=== PATIENT | female | born 1960 | race African-American/Black ===

== ENCOUNTER 2018-03-04 15:57 | Emergency (ER) | payer MEDICAID ==
[2018-03-04] MEDS ORDERED: Sodium Chloride 0.9% 1,000 ML IV ONE (16:16)
[2018-03-04] MEDS ORDERED: Sodium Chloride 0.9% 10 ML Syringe FLUSH PRN (16:17)
--- NOTE | 2018-03-04 16:31 | EDM.PDOC ---
ED HPI GENERAL MEDICAL PROBLEM - General Chief Complaint: Neuro Symptoms/Deficits Stated Complaint: [facility] Time Seen by Provider: 03/04/18 16:06 Source of Information: Reports: Patient, Police History Limitations: Reports: No Limitations - History of Present Illness INITIAL COMMENTS - FREE TEXT/NARRATIVE: 57-year-old female arrives via ambulance service for evaluation treatment of right-sided weakness. Patient is currently at [facility]. The report I got from the police and she began complaining of dizziness around 1400. They moved her downstairs for closer monitoring. They appreciated that she then had speech difficulties which they did not identify as slurred speech but more trouble with stuttering and word finding. Patient is complaining of right-sided weakness in her arm and leg. She is also complaining of numbness and tingling in the right side of her arm and leg. She reports that she has a history of an aneurysm, this has never ruptured and has not required any repair thus far. Patient reports whenever she coughs she experiences a headache. Associated symptoms currently include a headache, dizziness, nausea and vomiting. Patient reports she has a history of multiple stroke. This was in [place], [place]. EMS reports that she did walk a short distance in front of them. She had a shaky gait but did not demonstrate any obvious weakness, right side did not give out on her. - Related Data Allergies Allergy/AdvReac Type Severity Reaction Status Date / Time No Known Allergies Allergy Verified 03/04/18 16:03 Home Meds: Home Meds Aspirin [[place] Aspirin EC] 81 mg PO DAILY 03/04/18 [History] Citalopram Hydrobromide [Celexa] 10 mg PO DAILY 03/04/18 [History] Cyclobenzaprine [Flexeril] 10 mg PO TID PRN 03/04/18 [History] Gabapentin [Neurontin] 300 mg PO BID 03/04/18 [History] Metoprolol Tartrate 25 mg PO BID 03/04/18 [History] Naproxen 375 mg PO BID 03/04/18 [History] Omeprazole 40 mg PO DAILY 03/04/18 [History] Polyethylene Glycol [Polyox Wsr-301] 1 dose PO DAILY PRN 03/04/18 [History] Pravastatin [Pravachol] 40 mg PO DAILY 03/04/18 [History] Thiamine [Vitamin B-1] 100 mg PO DAILY 03/04/18 [History] amLODIPine Besylate [Amlodipine Besylate] 10 mg PO DAILY 03/04/18 [History] hydrOXYzine HCl [hydrOXYzine] 25 mg PO BEDTIME PRN 03/04/18 [History] Past Medical History Cardiovascular History: Reports: Hypertension Neurological History: Reports: Cerebral Aneurysms, CVA Social & Family History - Tobacco Use Smoking Status *Q: Never Smoker Second Hand Smoke Exposure: No - Caffeine Use Caffeine Use: Reports: None - Recreational Drug Use Recreational Drug Use: Yes Drug Use in Last 12 Months: Yes ED ROS GENERAL - Review of Systems Review Of Systems: See Below Respiratory: Denies: Shortness of Breath Cardiovascular: Denies: Chest Pain GI/Abdominal: Reports: Nausea, Vomiting Musculoskeletal: Reports: Neck Pain Neurological: Reports: Dizziness, Headache (with cough), Numbness (right side), Tingling (right side), Trouble Speaking (no slurred speech, shaky speech, trouble wiht word finding), Difficulty Walking, Weakness (right sided) ED EXAM, NEURO - Physical Exam Exam: See Below Exam Limited By: No Limitations General Appearance: Alert, WD/WN, No Apparent Distress Eye Exam: Bilateral Eye: EOMI, Normal Inspection, PERRL Ears: Normal External Exam Nose: Normal Inspection Throat/Mouth: Normal Inspection, Normal Lips, No Airway Compromise, Other (no slurred speech) Respiratory/Chest: No Respiratory Distress, Lungs Clear, Normal Breath Sounds Cardiovascular: Normal Peripheral Pulses, Regular Rate, Rhythm, No Murmur GI/Abdominal: Soft, Non-Tender Neurological: Alert, Normal Mood/Affect, Normal Dorsiflexion (poor effort ), Normal Plantar Flexion (poor effort), 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 ) Extremities: Normal Inspection, Normal Capillary Refill Psychiatric: Normal Affect, Normal Mood Skin Exam: Warm, Dry, Normal Color EKG INTERPRETATION EKG Date: 03/04/18 Time: 17:00 Rhythm: NSR Rate (Beats/Min): 105 [place]: Normal P-Wave: Present QRS: Normal ST-T: Normal QT: Normal EKG Interpretation Comments: sinus tachycardia at 105. + LORENZO. + LAE. No AVB. No ischemic changes. Slight early transition. Borderline LAD. No LVH. No IVCD. QTc within normal limits with a QTc of 463. Reviewed by myself and Dr. Rivera. Course - Vital Signs Last Recorded V/S: Last Vital Signs Temp 97.1 F 03/04/18 16:00 Pulse 108 H 03/04/18 16:00 Resp 18 03/04/18 16:00 BP 134/101 H 03/04/18 16:00 Pulse Ox 99 03/04/18 16:00 - Orders/Labs/Meds Labs: Laboratory Tests 03/04/18 03/04/18 03/04/18 Range/Units 16:30 16:30 16:30 WBC 12.94 H (3.98-10.04) K/mm3 RBC 4.76 (3.98-5.22) M/mm3 Hgb 14.2 (11.2-15.7) gm/L Hct 43.5 (34.1-44.9) % MCV 91.4 (79.4-94.8) fl MCH 29.8 (25.6-32.2) pg MCHC 32.6 (32.2-35.5) g/dl RDW Std Deviation 43.8 (36.4-46.3) fL Plt Count 283 (182-369) K/mm3 MPV 9.5 (9.4-12.3) fl Neutrophils % (Manual) 61 H (40-60) % Band Neutrophils % 2 (0-10) % Lymphocytes % (Manual) 32 (20-40) % Atypical Lymphs % 0 % Monocytes % (Manual) 5 (2-10) % Eosinophils % (Manual) 0 L (0.7-5.8) % Basophils % (Manual) 0 L (0.1-1.2) Platelet Estimate Adequate RBC Morph Comment Normal PT 10.5 (9.5-12.1) SECONDS INR 0.96 APTT 28 (24-31) SECONDS Sodium 141 (136-145) mEq/L Potassium 3.1 L (3.5-5.1) mEq/L Chloride 101 (98-107) mEq/L Carbon Dioxide 28 (21-32) mEq/L Anion Gap 15.1 H (5-15) BUN 15 (7-18) mg/dL Creatinine 0.8 (0.55-1.02) mg/dL Est Cr Clr Drug Dosing 65.73 mL/min Estimated GFR (MDRD) > 60 (>60) mL/min BUN/Creatinine Ratio 18.8 H (14-18) Glucose 114 H (74-106) mg/dL POC Glucose (70-105) mg/dL Calcium 10.2 H (8.5-10.1) mg/dL Magnesium (1.8-2.4) mg/dl Total Bilirubin 0.5 (0.2-1.0) mg/dL AST 18 (15-37) U/L ALT 31 (14-59) U/L Alkaline Phosphatase 94 (46-116) U/L Total Protein 8.6 H (6.4-8.2) g/dl Albumin 4.7 (3.4-5.0) g/dl Globulin 3.9 gm/dL Albumin/Globulin Ratio 1.2 (1-2) TSH 3rd Generation (0.358-3.74) uIU/mL Urine Color (Yellow) Urine Appearance (Clear) Urine pH (5.0-8.0) Ur Specific [place] (1.005-1.030) Urine Protein (Negative) Urine Glucose (UA) (Negative) Urine Ketones (Negative) Urine Occult Blood (Negative) Urine Nitrite (Negative) Urine Bilirubin (Negative) Urine Urobilinogen (0.2-1.0) Ur Leukocyte Esterase (Negative) Urine RBC (0-5) /hpf Urine WBC (0-5) /hpf Ur Epithelial Cells (0-5) /hpf Urine Bacteria (FEW) /hpf Urine Mucus (FEW) /hpf Urine Opiates Screen (PMFKRV=264) Ur Buprenorphine Scrn (CUTOFF=10) Ur Oxycodone Screen (UGD6TS=564) Urine Methadone Screen (XJJDJU=455) Ur Propoxyphene Screen (UINJAQ=185) Ur Barbiturates Screen (IBTODI=109) Ur Tricyclics Screen (XVORUS=630) Ur Phencyclidine Scrn (CUTOFF=25) Ur Amphetamine Screen (EAGPFC=952) U Methamphetamines Scrn (XOTPYW=151) U Benzodiazepines Scrn (TOVYZI=021) U Cocaine Metab Screen (UGXHUQ=688) U Marijuana (THC) Screen (CUTOFF=50) 03/04/18 03/04/18 03/04/18 Range/Units 16:30 16:49 17:54 WBC (3.98-10.04) K/mm3 RBC (3.98-5.22) M/mm3 Hgb (11.2-15.7) gm/L Hct (34.1-44.9) % MCV (79.4-94.8) fl MCH (25.6-32.2) pg MCHC (32.2-35.5) g/dl RDW Std Deviation (36.4-46.3) fL Plt Count (182-369) K/mm3 MPV (9.4-12.3) fl Neutrophils % (Manual) (40-60) % Band Neutrophils % (0-10) % Lymphocytes % (Manual) (20-40) % Atypical Lymphs % % Monocytes % (Manual) (2-10) % Eosinophils % (Manual) (0.7-5.8) % Basophils % (Manual) (0.1-1.2) Platelet Estimate RBC Morph Comment PT (9.5-12.1) SECONDS INR APTT (24-31) SECONDS Sodium (136-145) mEq/L Potassium (3.5-5.1) mEq/L Chloride (98-107) mEq/L Carbon Dioxide (21-32) mEq/L Anion Gap (5-15) BUN (7-18) mg/dL Creatinine (0.55-1.02) mg/dL Est Cr Clr Drug Dosing mL/min Estimated GFR (MDRD) (>60) mL/min BUN/Creatinine Ratio (14-18) Glucose (74-106) mg/dL POC Glucose 111 H (70-105) mg/dL Calcium (8.5-10.1) mg/dL Magnesium 2.2 (1.8-2.4) mg/dl Total Bilirubin (0.2-1.0) mg/dL AST (15-37) U/L ALT (14-59) U/L Alkaline Phosphatase (46-116) U/L Total Protein (6.4-8.2) g/dl Albumin (3.4-5.0) g/dl Globulin gm/dL Albumin/Globulin Ratio (1-2) TSH 3rd Generation 1.808 (0.358-3.74) uIU/mL Urine Color Yellow (Yellow) Urine Appearance Clear (Clear) Urine pH 7.0 (5.0-8.0) Ur Specific [place] 1.020 (1.005-1.030) Urine Protein 1+ H (Negative) Urine Glucose (UA) Negative (Negative) Urine Ketones 2+ H (Negative) Urine Occult Blood Negative (Negative) Urine Nitrite Negative (Negative) Urine Bilirubin Negative (Negative) Urine Urobilinogen 2.0 H (0.2-1.0) Ur Leukocyte Esterase Negative (Negative) Urine RBC 0-5 (0-5) /hpf Urine WBC 0-5 (0-5) /hpf Ur Epithelial Cells 5-10 H (0-5) /hpf Urine Bacteria Few (FEW) /hpf Urine Mucus Few (FEW) /hpf Urine Opiates Screen (BAGMNC=842) Ur Buprenorphine Scrn (CUTOFF=10) Ur Oxycodone Screen (TFG8EB=137) Urine Methadone Screen (YSPZAG=806) Ur Propoxyphene Screen (DBRKUQ=560) Ur Barbiturates Screen (JTBWJC=519) Ur Tricyclics Screen (XHQTHS=810) Ur Phencyclidine Scrn (CUTOFF=25) Ur Amphetamine Screen (GCAOLM=311) U Methamphetamines Scrn (STVWJW=171) U Benzodiazepines Scrn (AOAMGS=871) U Cocaine Metab Screen (KSGJJV=292) U Marijuana (THC) Screen (CUTOFF=50) 03/04/18 Range/Units 17:54 WBC (3.98-10.04) K/mm3 RBC (3.98-5.22) M/mm3 Hgb (11.2-15.7) gm/L Hct (34.1-44.9) % MCV (79.4-94.8) fl MCH (25.6-32.2) pg MCHC (32.2-35.5) g/dl RDW Std Deviation (36.4-46.3) fL Plt Count (182-369) K/mm3 MPV (9.4-12.3) fl Neutrophils % (Manual) (40-60) % Band Neutrophils % (0-10) % Lymphocytes % (Manual) (20-40) % Atypical Lymphs % % Monocytes % (Manual) (2-10) % Eosinophils % (Manual) (0.7-5.8) % Basophils % (Manual) (0.1-1.2) Platelet Estimate RBC Morph Comment PT (9.5-12.1) SECONDS INR APTT (24-31) SECONDS Sodium (136-145) mEq/L Potassium (3.5-5.1) mEq/L Chloride (98-107) mEq/L Carbon Dioxide (21-32) mEq/L Anion Gap (5-15) BUN (7-18) mg/dL Creatinine (0.55-1.02) mg/dL Est Cr Clr Drug Dosing mL/min Estimated GFR (MDRD) (>60) mL/min BUN/Creatinine Ratio (14-18) Glucose (74-106) mg/dL POC Glucose (70-105) mg/dL Calcium (8.5-10.1) mg/dL Magnesium (1.8-2.4) mg/dl Total Bilirubin (0.2-1.0) mg/dL AST (15-37) U/L ALT (14-59) U/L Alkaline Phosphatase (46-116) U/L Total Protein (6.4-8.2) g/dl Albumin (3.4-5.0) g/dl Globulin gm/dL Albumin/Globulin Ratio (1-2) TSH 3rd Generation (0.358-3.74) uIU/mL Urine Color (Yellow) Urine Appearance (Clear) Urine pH (5.0-8.0) Ur Specific [place] (1.005-1.030) Urine Protein (Negative) Urine Glucose (UA) (Negative) Urine Ketones (Negative) Urine Occult Blood (Negative) Urine Nitrite (Negative) Urine Bilirubin (Negative) Urine Urobilinogen (0.2-1.0) Ur Leukocyte Esterase (Negative) Urine RBC (0-5) /hpf Urine WBC (0-5) /hpf Ur Epithelial Cells (0-5) /hpf Urine Bacteria (FEW) /hpf Urine Mucus (FEW) /hpf Urine Opiates Screen Negative (QNPCYH=166) Ur Buprenorphine Scrn Negative (CUTOFF=10) Ur Oxycodone Screen Negative (KWT4ZS=585) Urine Methadone Screen Negative (RLYGDA=308) Ur Propoxyphene Screen Negative (UVAWEM=305) Ur Barbiturates Screen Negative (NSRALM=766) Ur Tricyclics Screen Presumptive positive H (WNNIVA=933) Ur Phencyclidine Scrn Negative (CUTOFF=25) Ur Amphetamine Screen Negative (TDNFEF=917) U Methamphetamines Scrn Negative (JNPUCB=492) U Benzodiazepines Scrn Negative (OTBRBC=569) U Cocaine Metab Screen Negative (HILXQM=499) U Marijuana (THC) Screen Presumptive positive H (CUTOFF=50) Meds: Medications Discontinued Medications Generic Name Dose Route Start Last Admin Trade Name Freq PRN Reason Stop Dose Admin Diphenhydramine HCl 50 mg 03/04/18 19:21 03/04/18 19:30 Benadryl IVPUSH 03/04/18 19:22 50 mg ONETIME ONE Administration Haloperidol Lactate 2.5 mg 03/04/18 19:21 03/04/18 19:33 Haldol IVPUSH 03/04/18 19:22 2.5 mg ONETIME ONE Administration Sodium Chloride 1,000 mls @ 100 mls/hr 03/04/18 16:16 03/04/18 16:49 Normal Saline IV 03/05/18 02:15 100 mls/hr ONETIME ONE Administration Ketorolac Tromethamine 30 mg 03/04/18 17:47 03/04/18 18:08 Toradol IVPUSH 03/04/18 17:48 30 mg ONETIME ONE Administration Ondansetron HCl 4 mg 03/04/18 16:43 03/04/18 16:49 Zofran IVPUSH 03/04/18 16:44 4 mg ONETIME ONE Administration Ondansetron HCl 4 mg 03/04/18 19:21 03/04/18 19:28 Zofran IVPUSH 03/04/18 19:22 4 mg ONETIME ONE Administration Sodium Chloride 10 ml 03/04/18 16:17 03/04/18 16:50 Saline Flush FLUSH 10 ml ASDIRECTED PRN Administration Keep Vein Open - Radiology Interpretation Free Text/Narrative:: Head CT Technique: Multiple axial sections through the brain were obtained. Intravenous contrast was not utilized. Comparison: No previous intracranial imaging is available. Findings: Ventricles along with basal cisterns and sulci over the convexities are within normal limits for the patient's age. No abnormal parenchymal densities are seen. No evidence of intracranial hemorrhage. No midline shift or mass effect is seen. Bone window settings were reviewed which shows no acute calvarial abnormality. Visualized sinuses are clear. Impression: 1. Nothing acute is appreciated on noncontrast head CT study. Chest: Portable view of the chest was obtained. Comparison: No previous chest x-ray. Heart size is normal. Upper mediastinum is normal. Scarring or discoid atelectasis is seen within the left mid to lower lung. Lungs otherwise are clear. Bony structures are grossly intact. Impression: 1. Linear scarring or discoid atelectasis within the left mid to lower lung. 2. Nothing acute is otherwise seen on portable chest x-ray. - Re-Assessments/Exams Free Text/Narrative Re-Assessment/Exam: 03/04/18 20:08 I do not believe the patient is having a CVA. No signs of old CVA on Ct scan. Likely migraine and/or vertigo. NIHSS score reported as 9 but actually does not have drift of extremities on one side, she has generalized weakness to both extremities. Upon further discussion with the patient the right sided weakness she was complainong of is chronic from old CVA. I did not appreciate any right sisded weakness on exam, only generalized weakness. I asked Dr. Rivera to see the patient. He has seen the patient and agrees this is not a CVA. Likely an atypical migraine as she is now complaining more of a headache and less of numbness, tingling weakness. Headache is improving after medications. Shaky speech and trouble with word finding resolved. Reprots numbness and tinglign nearly resolved. Will discharge home. Police have dropped charges against the patient. Discharge instructions as documented. Departure - Departure Time of Disposition: 20:14 Disposition: Home, Self-Care 01 Condition: Good Clinical Impression: Migraine - Discharge Information *PRESCRIPTION DRUG MONITORING PROGRAM REVIEWED*: No *COPY OF PRESCRIPTION DRUG MONITORING REPORT IN PATIENT DAMION: No Instructions: Migraine Headache Referrals: PCP,None [Ordering Only Provider] - Forms: ED Department Discharge Additional Instructions: Rest. Drink plenty of fluids. OTC tylenol or motrin as needed for pain. Follow-up with family medicine within 2 weeks for a recheck of your symptoms. Here ins [facility] recommend Dr. Davis. Call [phone] to schedule with her. Please return to the ER should your symptoms change or worsen.
[2018-03-04] MEDS ORDERED: Ondansetron 4 MG/2 ML SDV IVPUSH ONE ×2 (16:43→19:21)
--- NOTE | 2018-03-04 16:55 | CT ---
Head CT Technique: Multiple axial sections through the brain were obtained. Intravenous contrast was not utilized. Comparison: No previous intracranial imaging is available. Findings: Ventricles along with basal cisterns and sulci over the convexities are within normal limits for the patient's age. No abnormal parenchymal densities are seen. No evidence of intracranial hemorrhage. No midline shift or mass effect is seen. Bone window settings were reviewed which shows no acute calvarial abnormality. Visualized sinuses are clear. Impression: 1. Nothing acute is appreciated on noncontrast head CT study. Diagnostic code #1
[2018-03-04] MEDS ORDERED: Ketorolac 30 MG/ML SDV IVPUSH ONE (17:47)
--- NOTE | 2018-03-04 18:57 | CR ---
Chest: Portable view of the chest was obtained. Comparison: No previous chest x-ray. Heart size is normal. Upper mediastinum is normal. Scarring or discoid atelectasis is seen within the left mid to lower lung. Lungs otherwise are clear. Bony structures are grossly intact. Impression: 1. Linear scarring or discoid atelectasis within the left mid to lower lung. 2. Nothing acute is otherwise seen on portable chest x-ray. Diagnostic code #2
[2018-03-04] MEDS ORDERED: Haloperidol Lactate 5 MG/ML SDV IVPUSH ONE (19:21)
[2018-03-04] MEDS ORDERED: diphenhydrAMINE 50 MG/ML SDV IVPUSH ONE (19:21)
== END 2018-03-04 20:22 | disposition home or self-care (01) ==
LOC: JD.ED 15:57
DX: G43.909 Migraine, unspecified, not intractable, without status migrainosus (principal); I10 Essential (primary) hypertension; Z79.82 Long term (current) use of aspirin; Z79.899 Other long term (current) drug therapy
CPT/HCPCS: 36415; 70450; 71045; 80053; 80306; 81001; 82962; 83735; 84443; 85007; 85027; 85610; 85730; 93005; 96361; 96374; 96375; 96376; 99285; J1200; J1630; J1885; J2405; J7040